=== PATIENT | female | born 1965 | race Caucasian/White ===

== ENCOUNTER → 2019-03-22 | Outpatient (CLI) | payer BC ==
[2019-03-22 09:37] VITALS: BP 119/86; PULSE 62; RESP 18; TEMP 98.3; BMI 28.0
--- NOTE | 2019-03-22 10:38 | P.GSHP ---
History of Present Illness H&P Date: 03/22/19 Chief Complaint: atypia left bresat on core biopsy Griselda is a 54-year-old white female who underwent routine examination was noted to have some fullness in her left breast. She was recommended to undergo a screening mammography which was performed in December 2018. Following this it was recommended she undergo additional views of the left breast which were performed and showed grouped calcifications at the 1 o'clock position in the middle depth. A biopsy was recommended. No lesions of concern were described in the right breast. The patient cannot feel any lumps masses or nodules of concern in her breasts. She does complain of a burning sensation at the site where the biopsy was performed. No nipple discharge. She has not had any trauma or infection in the breast. She has not had any prior breast biopsies to this. A stereotactic core biopsy was performed on 02/01/2019. Pathology revealed scattered foci of flat epithelial atypia and columnar cell change and coexisting duct ectasia, adenosis, intraductal papillomatosis, and intraductal hyperplasia associated with numerous microcalcifications. The patient has not had any complications related to the biopsy. Family history: father: prostate cancer sister: thyroid cancer, cervical cancer, breast cancer maternal aunt (2): breast cancer Hormonal History: menarche: 10 , breast fed: yes, age at first : 18 menopause: partial hysterectomy at 44, left ovaries, no cancer BCP: 10 years hormones: none Surgical history: 1. Partial hysterectomy of 44 2. gallbladder 3. Medical History: 1. HTN Social History: smoke: none alcohol: weekly drugs: none - Constitutional Comment: hot flashes Constitutional: Reports sweats - EENT Comment: wears glasses Eyes: denies blurred vision, denies pain Ears: bilateral: decreased hearing, deny: tinnitus Ears, nose, mouth and throat: Denies headache, Denies sore throat - Breasts Breasts: bilateral: as per HPI - Cardiovascular Cardiovascular: Reports high blood pressure - Respiratory Respiratory: Denies cough, Denies 7 - Gastrointestinal Gastrointestinal: Denies abdominal pain, Denies diarrhea, Denies nausea, Denies vomiting - Genitourinary (Female) Genitourinary: Denies dysuria, Denies hematuria - Menstruation Menstruation: Reports post hysterectomy - Musculoskeletal Musculoskeletal: Denies myalgias - Integumentary Comment: sensative skin - Neurological Neurological: Denies numbness, Denies weakness - Psychiatric Psychiatric: Reports depression - Endocrine Endocrine: Denies fatigue, Denies weight change - Hematologic/Lymphatic Comment: none - Allergic/Immunologic Allergic/Immunologic: Reports as per HPI Past Medical History Past Medical History: Hypertension History of Any Multi-Drug Resistant Organisms: None Reported Past Surgical History: Cholecystectomy, Hysterectomy Additional Past Surgical History / Comment(s): 02/01/19 left breast stereo biopsy Past Psychological History: Depression Smoking Status: Never smoker Past Alcohol Use History: Occasional Past Drug Use History: None Reported - Past Family History Father Family Medical History: Cancer Additional Family Medical History / Comment(s): prostate cancer, multiple strokes Mother Family Medical History: No Reported History Sister(s) Family Medical History: Cancer Additional Family Medical History / Comment(s): ovarian cancer, breast cancer, thyroid cancer Medications and Allergies Home Medications Medication Instructions Recorded Confirmed Type Citalopram Hydrobromide [CeleXA] 40 mg PO DAILY 03/22/19 03/22/19 History Losartan [Cozaar] 25 mg PO QAM 03/22/19 03/22/19 History [place]-3 Fatty Acids/Fish Oil [Fish 1 each PO QAM 03/22/19 03/22/19 History Oil 1,000 mg Softgel] Omeprazole [PriLOSEC] 20 mg PO QAM 03/22/19 03/22/19 History Allergies Allergy/AdvReac Type Severity Reaction Status Date / Time No Known Allergies Allergy Unverified 03/22/19 09:23 Surgical - Exam Vital Signs Temp Pulse Resp BP Pulse Ox 98.3 F 62 18 119/86 100 03/22/19 09:23 03/22/19 09:23 03/22/19 09:23 03/22/19 09:23 03/22/19 09:23 BMI 28.1 - General well developed, well nourished, no distress - Eyes normal ocular movement - ENT no hearing loss, no congestion - Neck no masses, trachea midline - Respiratory normal respiratory effort, clear to auscultation - Cardiovascular Rhythm: regular Heart Sounds: normal: S1, S2 - Abdomen normal bowel sounds Abdomen: soft, non tender, no guarding, no rigid, no rebound - Integumentary multiple tatoos - Neurologic no disoriented, no combative - Musculoskeletal normal gait, normal posture - Psychiatric oriented to time, oriented to person, oriented to place, speech is normal, memory intact Examination: right breast: Multiple positional exam no dominant masses or nodules of concern Right axilla: No adenopathy of concern Left breast: Multiple positional exam no dominant masses or nodules of concern, some mild increased fullness in the lateral aspect which is not worrisome Area of biopsy is clean and dry with no evidence of infection Ross size 36 DD, ptosis grade 3 Results mammogram reviewed Assessment and Plan Assessment: Impression: 1. Mammographic abnormality left breast 2. Core biopsy left breast epithelial atypia and that rectal papillomatosis 3. Hypertension 4. Family history of cancer 5. Family history of breast cancer 6. Dense breast 7. Fibrocystic breast changes Plan: 1. Needle localization excisional biopsy left breast epithelial atypia and intraductal papillomatosis with possible tissue transfer most likely to be done through an eccentric donut mastopexy incision 2. Medical management of medical conditions I discussed the risks and benefits of surgery with the patient and her family. We have discussed the surgical approach which could include an incision directly over the lesion versus a incision which would allow for a slight mastopexy. The patient wishes the mastopexy incision. It will most likely be an eccentric donut mastopexy depending on placement of the needle for localization. The patient understands risks which would include bleeding, infection, reaction to the anesthetic. She also understands she will be cosmetically asymmetric to the contralateral breast following the procedure. Cc: Malini Kaminski
== END ==
LOC: WWCWWP 08:54
PROVIDERS: ATTEND Surgery
DX: Z53.9 Procedure and treatment not carried out, unspecified reason (principal)

== ENCOUNTER → 2019-05-28 | Day surgery (SDC) | payer BC ==
--- NOTE | 2019-05-23 13:02 | P.PN ---
Subjective Progress Note Date: 05/23/19 Principal diagnosis: Atypia on stereotactic core biopsy left breast Griselda is a 54-year-old white female who underwent routine examination was noted to have some fullness in her left breast. She was recommended to undergo a screening mammography which was performed in December 2018. Following this it was recommended she undergo additional views of the left breast which were performed and showed grouped calcifications at the 1 o'clock position in the middle depth. A biopsy was recommended. No lesions of concern were described in the right breast. The patient cannot feel any lumps masses or nodules of concern in her breasts. She does complain of a burning sensation at the site where the biopsy was performed. No nipple discharge. She has not had any trauma or infection in the breast. She has not had any prior breast biopsies to this. A stereotactic core biopsy was performed on 02/01/2019. Pathology revealed scattered foci of flat epithelial atypia and columnar cell change and coexisting duct ectasia, adenosis, intraductal papillomatosis, and intraductal hyperplasia associated with numerous microcalcifications. The patient has not had any complications related to the biopsy. Family history: father: prostate cancer sister: thyroid cancer, cervical cancer, breast cancer maternal aunt (2): breast cancer Hormonal History: menarche: 10 , breast fed: yes, age at first : 18 menopause: partial hysterectomy at 44, left ovaries, no cancer BCP: 10 years hormones: none Surgical history: 1. Partial hysterectomy of 44 2. gallbladder 3. Medical History: 1. HTN Social History: smoke: none alcohol: weekly drugs: none - Constitutional Comment: hot flashes Constitutional: Reports sweats - EENT Comment: wears glasses Eyes: denies blurred vision, denies pain Ears: bilateral: decreased hearing, deny: tinnitus Ears, nose, mouth and throat: Denies headache, Denies sore throat - Breasts Breasts: bilateral: as per HPI - Cardiovascular Cardiovascular: Reports high blood pressure - Respiratory Respiratory: Denies cough, Denies 7 - Gastrointestinal Gastrointestinal: Denies abdominal pain, Denies diarrhea, Denies nausea, Denies vomiting - Genitourinary (Female) Genitourinary: Denies dysuria, Denies hematuria - Menstruation Menstruation: Reports post hysterectomy - Musculoskeletal Musculoskeletal: Denies myalgias - Integumentary Comment: sensative skin - Neurological Neurological: Denies numbness, Denies weakness - Psychiatric Psychiatric: Reports depression - Endocrine Endocrine: Denies fatigue, Denies weight change - Hematologic/Lymphatic Comment: none - Allergic/Immunologic Allergic/Immunologic: Reports as per HPI Past Medical History Past Medical History: Hypertension History of Any Multi-Drug Resistant Organisms: None Reported Past Surgical History: Cholecystectomy, Hysterectomy Additional Past Surgical History / Comment(s): 02/01/19 left breast stereo biopsy Past Psychological History: Depression Smoking Status: Never smoker Past Alcohol Use History: Occasional Past Drug Use History: None Reported - Past Family History Father Family Medical History: Cancer Additional Family Medical History / Comment(s): prostate cancer, multiple strokes Mother Family Medical History: No Reported History Sister(s) Family Medical History: Cancer Additional Family Medical History / Comment(s): ovarian cancer, breast cancer, thyroid cancer Medications and Allergies Home Medications Medication Instructions Recorded Confirmed Type Citalopram Hydrobromide [CeleXA] 40 mg PO DAILY 03/22/19 03/22/19 History Losartan [Cozaar] 25 mg PO QAM 03/22/19 03/22/19 History [place]-3 Fatty Acids/Fish Oil [Fish 1 each PO QAM 03/22/19 03/22/19 History Oil 1,000 mg Softgel] Omeprazole [PriLOSEC] 20 mg PO QAM 03/22/19 03/22/19 History Allergies Allergy/AdvReac Type Severity Reaction Status Date / Time No Known Allergies Allergy Unverified 03/22/19 09:23 Objective - Vital Signs Vital signs: 28.1 - Constitutional General appearance: Present: average body habitus - EENT Eyes: Present: EOMI ENT: Present: hearing grossly normal - Respiratory Respiratory: bilateral: CTA - Cardiovascular Rhythm: regular Heart sounds: normal: S1, S2 - Gastrointestinal General gastrointestinal: Present: normal bowel sounds, soft - Musculoskeletal Musculoskeletal: Present: gait normal - Psychiatric Psychiatric: Present: A&O x's 3, appropriate affect, intact judgment & insight - Additional findings Additional findings: Breast examination: Right breast: Multi-positional exam no dominant masses or nodules of concern Right axilla: No adenopathy of concern Left breast: Multi-positional exam no dominant masses or nodules of concern, some mild increased fullness in the lateral aspect, area of biopsy was clean and dry with no evident infection Left axilla: No adenopathy of concern Bloss size 36 DD, ptosis grade 3 Assessment and Plan Assessment: Impression/plan: Impression: 1. Mammographic abnormality left breast 2. Core biopsy left breast epithelial atypia and intraductal papillomatosis 3. Hypertension 4. Family history of cancer 5. Family history of breast cancer 6. Dense breast 7. Fibrocystic breast changes Plan: 1. Needle local excisional biopsy left breast epithelial atypia and intraductal papillomatosis with possible tissue transfer was likely to be done through an eccentric donut mastopexy incision 2. Medical management of medical conditions I discussed the risks and benefits of surgery with the patient and her family. We've discussed the surgical approach which could include an incision directly over the lesion versus an incision which would allow for slight mastopexy. The patient wishes a mastopexy incision. We'll most likely be an eccentric donut mastopexy depending on placement of the needle for localization. The patient understands risks and would include bleeding, infection, reaction to the anesthetic. She also understands that she will be cosmetically asymmetric to the contralateral breast following the procedure. She also understands that if the lesion. She also understands possible failure to resect the lesion which could require further surgical intervention. She understands these and wishes to proceed.
[2019-05-24 08:54] VITALS: BMI 28.5
[~2019-05-28] MED LIST: ALPRAZolam 0.5 MG TAB PO ONE; DEXAMETHASONE SOD PHOSPHATE 10 MG/ML 1 ML VIAL IV ONE; HEPARIN SODIUM,PORCINE 5,000 UNIT/ML 1 ML VIAL SQ ONE; HYDROcodone/APAP 5-325MG 1 EACH TAB PO ONE; HYDROmorphone 0.5 MG/0.5 ML SYRINGE IVP PRN; KETOROLAC 30 MG/ML 1 ML VIAL IVP SCH; LACTATED RINGERS 1,000 ML IV SCH; LIDOCAINE 1% (10MG/ML) FOR IV START INTRADERMA PRN; LIDOCAINE 1% INJ 10MG/ML (20 ML MDV) ONE; LIDOCAINE 1% INJ 10MG/ML (20 ML MDV) SQ ONE; METOCLOPRAMIDE 5 MG/ML 2 ML VIAL IVP PRN; MIDAZOLAM 2 MG/2 ML VIAL ONE; ONDANSETRON 4 MG/2 ML VIAL IVP ONE; PROPOFOL 10 MG/ML 20 ML VIAL IV ONE; Pre Op ABX Message 1 EACH MISC MISCELLANE ONE; SCOPOLAMINE 1.5MG/72HR PATCH TRANSDERM ONE; SUCCINYLCHOLINE CHLORIDE 100 MG/5 ML SYR IV ONE; ePHEDrine SULFATE/0.9% NACL/PF 50 MG/5 ML SYRINGE IV ONE; fentaNYL (PF) 50 MCG/ML 2 ML AMP ONE
--- NOTE | 2019-05-28 11:20 | P.OP ---
Date of Procedure: 05/28/19 Preoperative Diagnosis: Epithelial atypia core biopsy in the left breast Postoperative Diagnosis: Same Procedure(s) Performed: Localization excisional biopsy via crescent mastopexy incision Anesthesia: BALTAZARA Surgeon: Keerthi Hinson Estimated Blood Loss (ml): 10 IV fluids (ml): 600 Pathology: other (breast tissue) Condition: stable Disposition: same day Indications for Procedure: Prior biopsy with epithelial atypia left breast upper outer quadrant area Operative Findings: Dense breast tissue Description of Procedure: (54-year-old white female status post core biopsy of an area of concern in the left breast. Pathology revealed epithelial atypia. This was in the upper outer quadrant area. The patient was recommended to undergo needle localization and excisional biopsy. Risks and benefits of the procedure were discussed with the patient. Additionally the patient wished to have some correction of ptosis if possible during the procedure. We therefore discussed crescent mastopexy and she opted for this operative approach. After localization of the area of concern and the case was reviewed with radiology and it was felt that this was a reasonable approach. The patient was marked in the preoperative area for crescent mastopexy. The superior aspect of the crescent was approximately 2 cm above the superior area line. Patient was brought to the operating room and following induction of anesthesia the left breast was prepped and draped in a sterile fashion. The area of the crescent was scored and the tissue was de-epithelialized. Using the superior-lateral aspect of the crescent entrance was made into the breast parenchyma. Dissection was carried down in the subcu plane to the localizing wire shaft. This was grasped and dissection was performed circumferentially around this to the tip of the needle. The defect was approximately 5 cm x 3 cm. It was dissected down to the pectoralis major muscle. Hemostasis was attained using electrocautery device as well as the Harmonic scalpel. Following this the specimen was removed and painted for orientation. It was sent to x-ray for confirmation the area of concern was removed was obtained. Following this titanium clips were placed to abiel our location. Tissue mobilization was then performed superiorly and inferiorly forming 2 columns of tissue. The mobilized tissue was approximately 30 mL in size. This mobilized tissue was brought into the defect and secured using 3-0 Vicryl suture. Following this the wound was again well irrigated. A subcutaneous stitch tissue closure was performed using 3-0 Vicryl suture. The skin was closed using 4-0 Monocryl. Mastisol and Steri-Strips were applied. The patient tolerated the procedure in stable condition. All instrument and sponge counts were correct at the end of the case.
--- NOTE | 2019-05-28 11:22 | P.DS ---
Providers Date of admission: t Attending physician: Keerthi Hinson Primary care physician: Raymond Negrete Plan - Discharge Summary Discharge Rx Participant: Yes New Discharge Prescriptions: No Action Citalopram Hydrobromide [CeleXA] 40 mg PO DAILY Omeprazole [PriLOSEC] 20 mg PO QAM Losartan [Cozaar] 25 mg PO QAM [place]-3 Fatty Acids/Fish Oil [Fish Oil 1,000 mg Softgel] 1 each PO QAM Discharge Medication List Citalopram Hydrobromide [CeleXA] 40 mg PO DAILY 03/22/19 [History] Losartan [Cozaar] 25 mg PO QAM 03/22/19 [History] [place]-3 Fatty Acids/Fish Oil [Fish Oil 1,000 mg Softgel] 1 each PO QAM 03/22/19 [History] Omeprazole [PriLOSEC] 20 mg PO QAM 03/22/19 [History] Follow up Appointment(s)/Referral(s): Keerthi Hinson MD [STAFF PHYSICIAN] - 1 Week Patient Instructions/Handouts: *Surgery [facility] - Scopalamine Patch Instructions Activity/Diet/Wound Care/Special Instructions: Wear bra at all times May shower after [address] after 24 hours from discharge if not taking narcotic pain medication Discharge Disposition: HOME SELF-CARE
[2019-05-28 11:39] VITALS: TEMP 97.5
[2019-05-28 12:23] VITALS: BP 107/72; PULSE 100; RESP 16
--- NOTE | 2019-05-28 14:07 | MM ---
EXAMINATION TYPE: MG pre op needle loc LT, MG surgical specimen LT DATE OF EXAM: 05/28/2019 COMPARISON: Outside stereotactic guided biopsy dated 02/01/2019 CLINICAL HISTORY: Request for needle localization of a left breast biopsy marker after stereotactic guided biopsy and 02/01/2019 TECHNIQUE: Needle localization with wire placement and surgical excision of area of concern in the left breast. FINDINGS: The procedure of needle localization with wire placement and than surgical excision was explained to the patient. Benefits, alternatives, and risks were discussed. An informed consent was then obtained. Preprocedural timeout was performed. The shortest pathway for procedure was chosen. Shortest pathway was CC from above approach. The overlying skin was prepped and draped in usual sterile fashion. Lidocaine buffered with bicarbonate was used as anesthetic into the skin and subcutaneous tissue up to the level of area of concern. A 5 cm needle was used. It was placed via a 5 approach under mammographic guidance. Subsequent 90 degrees mammogram show the needle to be in satisfactory position relative to the targeted area. At this point, wire was placed and the needle was withdrawn. The wire was fixed to patient's skin. Images were marked for surgeon. The patient tolerated the procedure well without any immediate complication. The patient was kept in the radiology department for short stay after the procedure and then taken to surgery for surgical excision. Targeted biopsy marker and wire are identified in specimen mammogram. The patient was kept in hospital for short stay after the procedure and then discharged home in stable condition. IMPRESSION: Successful, uncomplicated needle localization with wire placement and surgical excision of a targeted biopsy marker in the left breast, full pathology results to follow. Pathology Results: High Risk A. LEFT BREAST, LUMPECTOMY: Atypical lobular hyperplasia, usual type duct hyperplasia, apocrine and secretory changes as well as fibrocystic spectrum changes. B. DEEPITHELIALIZED SKIN, EXCISION: Benign epidermis and dermis. Recommendation Surgical consult of the left breast. Continued surgical management of ALH. YAJAIRAD
== END | disposition home or self-care (01) ==
LOC: OR 07:33
PROVIDERS: ATTEND Surgery
DX: N60.92 Unspecified benign mammary dysplasia of left breast (principal); N60.12 Diffuse cystic mastopathy of left breast; D24.2 Benign neoplasm of left breast; I10 Essential (primary) hypertension; F32.9 Major depressive disorder, single episode, unspecified; K21.9 Gastro-esophageal reflux disease without esophagitis; Z79.899 Other long term (current) drug therapy; Z90.49 Acquired absence of other specified parts of digestive tract; Z98.890 Other specified postprocedural states; Z80.42 Family history of malignant neoplasm of prostate; Z80.49 Family history of malignant neoplasm of other genital organs; Z80.3 Family history of malignant neoplasm of breast; Z80.8 Family history of malignant neoplasm of other organs or systems; Z90.721 Acquired absence of ovaries, unilateral; Z82.3 Family history of stroke
CPT/HCPCS: 88305; 88307; 76098; 19281; 19125; 19316; J2250; J1644; J1100; J2405; J2001; J3010; J0330; J2704

== ENCOUNTER → 2019-10-17 | Outpatient (CLI) | payer BC ==
--- NOTE | 2019-10-17 12:48 | BMR ---
EXAMINATION TYPE: MR breast BILAT wo/w con DATE OF EXAM: 10/17/2019 COMPARISON: Prior outside mammogram January 25 2019 BI-RADS 0. HISTORY: Stereotactic guided core biopsy left breast for calcifications April 03, 2019 high risk wi th flat epithelial atypia and intraductal papillomatosis. Surgical excision performed May 28 0 showed atypical lobular hyperplasia. CONTRAST: Multiplanar, multisequence images of the breasts were acquired utilizing 8 mL intravenous Gadavist ga dolinium contrast. TECHNIQUE: A series of fat and water weighted images in the long and short axis views of both breasts are obtained in conjunction with dynamic contrast MRI with subtraction technique. Three-dimensional and additional postprocessing imaging is created on independent workstation and reviewed during offi cial interpretation of this study. FINDINGS: Heterogeneously dense fibroglandular tissue throughout both breasts is redemonstrated. T2-w eighted images show a few scattered simple-appearing thin-walled cysts bilaterally. T1 precontrast im ages show no suspicious fat-containing masses. Dynamic delayed postcontrast images show no suspicious abnormal intramammary lymph nodes. There is fairly moderate background fibroglandular enhancement bilaterally and dynamic postcontrast i mages making evaluation slightly suboptimal. With regards to the right breast. No suspicious skin thickening is present. No concerning pathologic mass or enhancement is identified. Chest wall is intact. No suspicious axillary adenopathy is present . Regard to the left breast there is artifact from prior excision near the 12 to 1:00 position left arabella ast with some distortion extending to the superior aspect. There is no suspicious enhancing mass or p athologic enhancement on the dynamic postcontrast and subtraction images. There is a single nonspecif ic round 4 x 2 mm lesion in the middle depth right breast slight lower inner quadrant for reference s eries 702 image 206. Dynamic postcontrast images show peripheral progressive enhancement with central area of indeterminate plateau type enhancement. Lesion favored benign. Remainder of left breast show s no suspicious enhancement. Single slightly more prominent but subcentimeter benign-appearing left a xillary lymph node axial image 68 series 601 is noted. No definitive abnormal left axillary adenopath y. No suspicious skin thickening. Chest wall is intact. IMPRESSION: No MRI evidence for invasive malignancy in either breast. BI-RADS 2 benign findings right breast. BI-RADS 3 probable benign findings left breast. Recommendation: Bilateral breast mammogram January 2020 to be back on annual schedule. Consider fabiana tubbs ultrasound left breast BC zone lower inner quadrant at time of diagnostic mammogram.
== END | disposition home or self-care (01) ==
LOC: RADMRIMAIN 09:59
PROVIDERS: ATTEND Internal Medicine Hematology & Oncology
DX: N62 Hypertrophy of breast (principal)
CPT/HCPCS: 77049; C8937; A9585

== ENCOUNTER → 2020-05-12 | Outpatient (CLI) | payer BC ==
--- NOTE | 2020-05-12 14:53 | MM ---
Reason for exam: additional evaluation requested from prior study. Last mammogram was performed 14 years and 1 month ago. History: Patient has history of high-risk lesion on a previous biopsy at age 54. Family history of breast cancer in sister at age 50. High risk MG pre op needle loc LT of the left breast, May 28, 2019. Lumpectomy of the left breast, May 28, 2019. Taking other hormone for 1 month. Physical Findings: Nurse did not find any significant physical abnormalities on exam. MG Diagnostic Mammo w CAD XIMENA Bilateral CC and MLO view(s) were taken. Prior study comparison: January 21, 2019, mammogram. The breast tissue is heterogeneously dense. This may lower the sensitivity of mammography. Post surgical change left breast. 12 o'clock focal asymmetry right breast does not persist on additional views. These results were verbally communicated with the patient and result sheet given to the patient on 05/12/20. ASSESSMENT: Benign, BI-RAD 2 RECOMMENDATION: Routine screening mammogram of both breasts in 1 year.
== END | disposition home or self-care (01) ==
LOC: RADMAMWWP 12:55
PROVIDERS: ATTEND Internal Medicine Hematology & Oncology
DX: R92.8 Other abnormal and inconclusive findings on diagnostic imaging of breast (principal)
CPT/HCPCS: 77066